=== PATIENT | male | born 1995 | race Caucasian/White ===

== ENCOUNTER 2018-06-29 11:22 | Day surgery (SDC) | payer BC ==
[2018-06-28 12:25] VITALS: BMI 28.8
[2018-06-29] MEDS ORDERED: Midazolam HCl 2 mg/2 ml Vial ONE (15:24)
[2018-06-29] MEDS ORDERED: Fentanyl 100 MCG/2 ML VIAL ONE (15:24)
[2018-06-29] MEDS ORDERED: Ferric Subsulfate 8 ML BOT ONE (15:52)
--- NOTE | 2018-06-29 19:59 | OP ---
PREOPERATIVE DIAGNOSES: Obstructive tonsillar hypertrophy, chronic tonsillitis, recurrent tonsilliti s. POSTOPERATIVE DIAGNOSES: Obstructive tonsillar hypertrophy, chronic tonsillitis, recurrent tonsillit is. PROCEDURE PERFORMED: Tonsillectomy over 12 years of age. PROCEDURE IN DETAIL: After consent was obtained, the patient was identified, brought to the operatin g room, and placed on the operating table in the supine position. General endotracheal anesthesia an d intravenous access was obtained and we proceeded with positioning the patient for oropharyngeal brennon jesus. Oropharyngeal exposure was obtained with a Monika-Yasmani mouth gag after a head drape was placed and secured with a towel clip. The Monika-Yasmani mouth gag was then suspended from the Thornton tray and palatal elevation was achieved with a red rubber catheter. The right tonsil was addressed first. We used a curved Allis to grasp the tonsil and retract it medially as an anterior pillar incision was m nemo with a #12 blade. The retrotonsillar fascial plane was then established and blunt dissection was performed with the suction cautery. Blood vessels were anticipated, identified, and cauterized as t hey were encountered. Ultimately, dissection was carried to the posterior tonsillar pillar mucosa wh ich was incised hemostatically, as well as the base of tongue connection. The tonsil was then passed off as a specimen and bleeding points within the tonsillar bed were cauter ized under direct visualization. We subsequently turned our attention to the contralateral side, whe re using a similar technique, a near identical procedure was performed. Again, the tonsil was graspe d and retracted medially with a curved Allis as an anterior pillar incision was made with a #12 blade . The retrotonsillar fascial plane was established and while the anterior pillar was retracted media lly, the hemostatic blunt dissection of the tonsil with a suction cautery was performed with blood ve ssels anticipated, identified, and cauterized as they were encountered. Again, dissection continued to the base of tongue and posterior tonsillar pillar mucosa which was incised in a hemostatic fashion . The tonsillar beds were then carefully inspected and bleeding points were identified and cauterize d with a suction cautery. After this portion of the procedure, hemostasis was completely obtained. The patient's oral cavity was copiously irrigated with iced saline and subsequently suctioned. We th en used the red rubber catheter to suction the gastric contents and the patient was subsequently arou sed, awakened, and extubated without difficulty and transported to the recovery room in stable condit ion. There were no complications. FINDINGS: The patient had very large tonsil especially on the right, which was sent for lymphoma spe cial studies.
== END 2018-06-29 17:20 | disposition home or self-care (01) ==
LOC: SDC 11:22
PROVIDERS: ATTEND Specialist
PROC: 0CBPXZZ Excision of Tonsils, External Approach (ICD-10-PCS; principal; 2018-06-29)
DX: J35.01 Chronic tonsillitis (principal); J45.909 Unspecified asthma, uncomplicated
CPT/HCPCS: 88184; 88304; 88307; J2250; J3010